=== PATIENT | male | born 1985 | race Caucasian/White ===

== ENCOUNTER → 2021-01-27 | Outpatient (REF) | payer SELFPAY | LOC: M SFHCADAM 10:06 | PROVIDERS: ATTEND Physician Assistant | DX: I10 Essential (primary) hypertension (principal); Z68.37 Body mass index [BMI] 37.0-37.9, adult; E11.65 Type 2 diabetes mellitus with hyperglycemia ==

== ENCOUNTER → 2022-07-22 | Outpatient (CLI) | payer OTHER | LOC: M OUTALCOH 07:21 | PROVIDERS: ATTEND Psychiatry & Neurology Psychiatry | DX: Z03.89 Encounter for observation for other suspected diseases and conditions ruled out (principal) ==

== ENCOUNTER 2022-08-03 15:49 | Outpatient (RCR) | payer OTHER | END 2022-08-15 | LOC: M OUTALCOH 15:49 | PROVIDERS: ATTEND Psychiatry & Neurology Psychiatry | DX: F12.10 Cannabis abuse, uncomplicated (principal); Z72.0 Tobacco use ==

== ENCOUNTER 2022-09-14 16:00 | Outpatient (RCR) | payer OTHER | END 2022-09-15 | LOC: M OUTALCOH 16:00 | PROVIDERS: ATTEND Psychiatry & Neurology Psychiatry | DX: F12.10 Cannabis abuse, uncomplicated (principal); Z72.0 Tobacco use ==

== ENCOUNTER 2023-06-16 04:55 | Emergency (ER) | payer OTHER ==
[~2023-06-16] VITALS: Ht 180.3 cm; Wt 127.3 kg
[2023-06-16 05:42] LABS: HEMATOCRIT 53.3 % (42.0-52.0); HEMOGLOBIN 19.2 g/dl (13.5-17.5); MEAN CORPUSCULAR HEMOGLOBIN 32.8 pg (27.0-33.0); PLATELET COUNT, AUTOMATED 202 10^3/uL (150-450); RED BLOOD COUNT 5.86 10^6/uL (4.30-6.10); WHITE BLOOD COUNT 11.3 10^3/uL (4.0-10.0)
[2023-06-16 06:05] LABS: AMPHETAMINES LEVEL URINE NEGATIVE (NEGATIVE); BARBITURATES URINE NEGATIVE (NEGATIVE); BENZODIAZEPINES URINE NEGATIVE (NEGATIVE); COCAINE METABOLITE URINE NEGATIVE (NEGATIVE); METHADONE URINE NEGATIVE (NEGATIVE); OPIATES URINE NEGATIVE (NEGATIVE)
[2023-06-16 06:06] LABS: PHENCYCLIDINE URINE NEGATIVE (NEGATIVE)
[2023-06-16 06:07] LABS: CANNABINOIDS URINE POSITIVE (NEGATIVE)
[2023-06-16 06:10] LABS: ALBUMIN 3.6 G/DL (3.2-5.2); ALKALINE PHOSPHATASE 101 U/L (46-116); ALT/SGPT 79 U/L (7.0-40); AST/SGOT 35 U/L (<34); BILIRUBIN,DIRECT 0.1 MG/DL (<0.4); BILIRUBIN,TOTAL 0.3 MG/DL (0.3-1.2); BLOOD UREA NITROGEN 7 MG/DL (9-23); CALCIUM LEVEL 9.7 MG/DL (8.5-10.1); CARBON DIOXIDE LEVEL 26 MMOL/L (20-31); CHLORIDE LEVEL 106 MMOL/L (98-107); CREATININE FOR GFR 0.86 MG/DL (0.70-1.30); GLOMERULAR FILTRATION RATE > 60.0 (>60); GLUCOSE, FASTING 169 MG/DL (60-100); POTASSIUM SERUM 3.8 MMOL/L (3.5-5.1); SALICYLATE LEVEL < 3.0 MG/DL (<30); SODIUM LEVEL 141 MMOL/L (136-145); TOTAL PROTEIN 6.8 G/DL (5.7-8.2)
[2023-06-16 06:12] LABS: THYROID STIMULATING HORMONE 1.451 uIU/ML (0.55-4.78)
[2023-06-16] MEDS ORDERED: HOME MED LIST COMPLETE! XX SCH ×2 (13:10→13:15)
[2023-06-16 14:26] VITALS: BP 143/86; TEMP 97.7; O2SAT 95
== END 2023-06-16 15:01 | disposition home or self-care (01) ==
LOC: M ED 04:55
DX: F10.120 Alcohol abuse with intoxication, uncomplicated (principal); F12.10 Cannabis abuse, uncomplicated; F17.210 Nicotine dependence, cigarettes, uncomplicated; Z88.8 Allergy status to other drugs, medicaments and biological substances